=== PATIENT | female | born 1950 | race African-American/Black ===

== ENCOUNTER → 2018-09-22 | Day surgery (SDC) | payer MEDICARE ==
[2018-09-17 15:48] LABS: BASOPHILS # (AUTO) 0.1 (0.0-0.1); BASOPHILS % 0.9 % (0.0-1.0); EOSINOPHILS # (AUTO) 0.3 (0.0-0.4); EOSINOPHILS % 2.7 % (0.0-6.0); HEMATOCRIT 23.8 % (34.2-44.1); HEMOGLOBIN 8.2 g/dL (12.0-16.0); LYMPHOCYTES # (AUTO) 1.6 (1.0-3.2); LYMPHOCYTES % 15.5 % (18.0-39.1); MEAN CORPUSCULAR HEMOGLOBIN 29.1 pg (28-32); MEAN CORPUSCULAR HGB CONC 34.5 g/dL (31-35); MEAN CORPUSCULAR VOLUME 84.4 fL (81-99); MONOCYTES # (AUTO) 0.8 (0.2-0.8); MONOCYTES % 7.6 % (4.4-11.3); NEUTROPHILS # (AUTO) 7.4 (2.1-6.9); NEUTROPHILS % 72.8 % (38.7-80.0); PLATELET COUNT 260 x10e3/uL (140-360); RED BLOOD COUNT 2.82 x10e6/uL (3.6-5.1); RED CELL DISTRIBUTION WIDTH 21.3 % (11.7-14.4)
[~2018-09-22] MED LIST: ADVIL200 MG PO; ALIGN4 MG PO; ALLOPURINOL100 MG PO; AMLODIPINE BESYL5 MG PO; ATORVASTATIN CA40 MG PO; BAYER ASPIRIN PO; BUMETANIDE1 MG PO; CARVEDILOL3.125 MG PO; FERROUS SULFAT325 MG PO; FISH OIL 1,0001 EAC2 PO; FUROSEMIDE INJ 10 MG/ML 4 ML VIAL ONE; FUROSEMIDE40 MG PO; LIDOCAINE HCL 2% LOCAL INJ 5 ML SDV VIAL INJ ONE; LOSARTAN POTAS100 MG PO; MIDAZOLAM HCL 2 MG/2 ML VIAL ONE; OMEPRAZOLE40 MG PO; ONDANSETRON HCL INJ 2MG/ML 2ML 2 MG/ML VIAL ONE; PROMETHAZINE HCL (IM) 25 MG/ML VIAL ONE; PROPOFOL IV EMULSION 10 MG/ML 20 ML VIAL ONE; SODIUM CHLORIDE 0.9% 500ML 500 ML ONE; SPIRONOLACTONE50 MG PO; TYLENOL PO; VITAMIN B12-FO1 EACH PO
--- OUTSIDE RECORDS SUMMARY | 2018-09-22 09:35 | XMS REPORT ---
Author [facility] Address Unknown Phone Unavailable Care Team Providers Care Data Capture Specialist Name Role Phone Unavailable Unavailable Problems This patient has no known problems. Allergies, Adverse Reactions, Alerts This patient has no known allergies or adverse reactions. Medications This patient has no known medications. Encounters Start Date/Time End Date/Time Encounter Type Admission Type Attending [facility] Care Department Encounter ID 2018-06-17 00:00:00 2018-06-17 00:00:00 Outpatient [facility] [id number] 2018-04-01 00:00:00 2018-04-01 00:00:00 Outpatient [facility] [id number] 2018-02-10 08:55:25 2018-02-10 08:55:25 Outpatient [facility] [id number] 2018-02-10 08:04:07 2018-02-10 08:04:07 Outpatient [facility] [id number] 2018-02-06 00:00:00 2018-02-06 00:00:00 Outpatient [facility] [id number] 2018-02-04 12:02:54 2018-02-04 12:02:54 Outpatient [facility] [id number] 2018-01-22 13:51:13 2018-01-22 13:51:13 Outpatient [facility] [id number] 2018-01-21 00:00:00 2018-01-21 00:00:00 Outpatient [facility] [id number] 2017-12-05 06:29:02 2017-12-05 06:29:02 Outpatient [facility] [id number] 2017-11-19 00:00:00 2017-11-19 00:00:00 Outpatient [facility] [id number] 2017-11-10 11:21:08 2017-11-10 11:21:08 Outpatient [facility] [id number] 2017-11-10 09:53:33 2017-11-10 09:53:33 Outpatient [facility] [id number] 2017-10-31 10:05:57 2017-10-31 10:05:57 Outpatient [facility] [id number] 2017-10-13 00:00:00 2017-10-13 00:00:00 Outpatient [facility] [id number] 2017-10-09 10:09:49 2017-10-09 10:09:49 Outpatient [facility] [id number] 2017-10-06 00:00:00 2017-10-06 00:00:00 Outpatient [facility] [id number] 2017-08-28 10:47:16 2017-08-28 10:47:16 Outpatient [facility] [id number] 2017-08-28 00:00:00 2017-08-28 00:00:00 Outpatient [facility] [id number] 2017-08-27 11:41:08 2017-08-27 11:41:08 Outpatient [facility] [id number] 2017-08-14 09:34:56 2017-08-14 09:34:56 Outpatient [facility] [id number] 2017-07-28 07:24:07 2017-07-28 07:24:07 Outpatient [facility] [id number] 2017-07-01 10:27:27 2017-07-01 10:27:27 Outpatient [facility] [id number] 2017-06-26 00:00:00 2017-06-26 00:00:00 Outpatient [facility] [id number] 2017-06-26 00:00:00 2017-06-26 00:00:00 Outpatient [facility] [id number] 2017-06-25 00:00:00 2017-06-25 00:00:00 Outpatient [facility] [id number] 2017-05-29 00:00:00 2017-05-29 00:00:00 Outpatient [facility] [id number] 2017-04-10 00:00:00 2017-04-10 00:00:00 Outpatient [facility] [id number] 2017-04-09 00:00:00 2017-04-09 00:00:00 Outpatient [facility] [id number] 2017-04-02 00:00:00 2017-04-02 00:00:00 Outpatient [facility] [id number] 2017-03-25 15:06:42 2017-03-25 15:06:42 Outpatient [facility] [id number] 2017-03-13 13:12:25 2017-03-13 13:12:25 Outpatient [facility] [id number] 2017-03-10 00:00:00 2017-03-10 00:00:00 Outpatient [facility] [id number] 2017-03-05 12:18:43 2017-03-05 12:18:43 Outpatient [facility] [id number] 2017-03-05 11:03:12 2017-03-05 11:03:12 Outpatient [facility] [id number] 2016-12-25 00:00:00 2016-12-25 00:00:00 Outpatient [facility] [id number] 2016-09-27 07:17:30 2016-09-27 07:17:30 Outpatient [facility] [id number] 2016-09-17 11:05:23 2016-09-17 11:05:23 Outpatient [facility] [id number] 2016-09-17 10:48:57 2016-09-17 10:48:57 Outpatient [facility] [id number] 2016-09-17 09:36:09 2016-09-17 09:36:09 Outpatient [facility] [id number] 2016-09-17 00:00:00 2016-09-17 00:00:00 Outpatient [facility] [id number] 2015-09-26 14:25:13 2015-09-26 14:25:13 Outpatient [facility] [id number]
--- OUTSIDE RECORDS SUMMARY | 2018-09-22 09:35 | XMS REPORT | Clinical Summary ---
Author Author [facility] Organization [facility] Address Unknown Phone Unavailable Care Team Providers Care Resident Services Supervisor Name Role Phone Sadiq Bergeron MD PCP Allergies Comments Active Allergy Reactions Severity Noted Date Dale Inhibitors Cough 12/14/2012 Iodine (Bulk) Nausea and 12/14/2012 Vomiting Medications End Date Status Medication Sig Dispensed Refills Start Date Active OMEGA-3S/DHA/EPA/FISH OIL Take 2-3 0 (OMEGA 3 OR) capsules by mouth daily. Active ascorbic acid (VITAMIN C) Take 500 mg 0 500 mg tablet by mouth daily. Active allopurinol (ZYLOPRIM) Take 1 tablet 90 tablet 1 100 mg tabletIndications: by mouth 7 Gout, unspecified daily. Active omeprazole (PRILOSEC) 20 Take 1 90 capsule 0 mg delayed release capsule by 7 capsule mouth daily 30min before breakfast. Active ketoconazole (NIZORAL) 2 Apply to 30 g 0 % topical affected area 8 creamIndications: daily. Intertriginous candidiasis Active amLODIPine (NORVASC) 5 mg Take 1 tablet 90 tablet 3 tabletIndications: by mouth 8 Chronic systolic daily. congestive heart failure Active aspirin (ASPIRIN) 81 mg Chew and 90 tablet 3 chewable swallow 1 8 tabletIndications: tablet by Chronic systolic mouth daily. congestive heart failure Active spironolactone Take 1 tablet 90 tablet 1 (ALDACTONE) 50 mg by mouth 8 tabletIndications: daily. Chronic systolic congestive heart failure Active atorvastatin (LIPITOR) 40 Take 1 tablet 90 tablet 1 mg tabletIndications: by mouth at 8 Chronic systolic bedtime congestive heart failure nightly. Active carvedilol (COREG) 6.25 Take 1 tablet 60 tablet 0 mg tabletIndications: by mouth 2 8 Hypertension, essential, times daily Chronic systolic CHF (with meals). (congestive heart failure) Active losartan (COZAAR) 100 mg Take 1 tablet 90 tablet 3 tabletIndications: by mouth 9 Hypertension, essential, daily. Chronic systolic Patient needs congestive heart failure to reschedule missed Cardiology, stress test, Hematology appointments for future refills. Active bumetanide (BUMEX) 1 mg Take 1 tablet 90 tablet 3 tabletIndications: by mouth 9 Chronic systolic daily Take 1 congestive heart failure tablet twice a day for 4-5 days. Then take daily or every other day depending in swelling of the legs or difficulty laying down flat.. 02/04/2018 Discontinued ASPIRIN 81 MG 1 TABLET 30 0 TABIndications: Chest DAILY 7 pain, unspecified 10/18/2017 Discontinued losartan (COZAAR) 100 mg Take 1 tablet 90 tablet 0 tabletIndications: by mouth 8 Hypertension, essential, daily Pt Chronic systolic needs to congestive heart failure reschedule missed Cardiology, stress test, Hematology appts for future refills.. 02/04/2018 Discontinued carvedilol (COREG) 6.25 Take 1 tablet 60 tablet 0 mg tabletIndications: by mouth 2 8 Hypertension, essential, times daily Chronic systolic CHF (with meals). (congestive heart failure) 01/14/2018 Discontinued furosemide (LASIX) 40 mg Take half of 60 tablet 1 tabletIndications: a tablet 8 Chronic systolic (20Mg) by congestive heart failure mouth 2 times daily. 02/04/2018 Discontinued amLODIPine (NORVASC) 5 mg Take 1 tablet 90 tablet 3 tabletIndications: by mouth 8 Chronic systolic daily. congestive heart failure 02/04/2018 Discontinued atorvastatin (LIPITOR) 40 Take 1 tablet 90 tablet 1 mg tabletIndications: by mouth at 8 Chronic systolic bedtime congestive heart failure nightly. 02/04/2018 Discontinued spironolactone Take 1 tablet 90 tablet 1 (ALDACTONE) 50 mg by mouth 8 tabletIndications: daily. Chronic systolic congestive heart failure 02/04/2018 Discontinued losartan (COZAAR) 100 mg Take 1 tablet 90 tablet 0 tabletIndications: by mouth 8 Hypertension, essential, daily Pt Chronic systolic needs to congestive heart failure reschedule missed Cardiology, stress test, Hematology appts for future refills.. 12/19/2017 predniSONE (DELTASONE) 20 Take 3 3 tablet 0 mg tabletIndications: tablets by 8 Chronic systolic CHF mouth once (congestive heart for 1 dose. failure) 02/04/2018 Discontinued furosemide (LASIX) 40 mg Take half of 90 tablet 0 tabletIndications: a tablet 8 Chronic systolic (20Mg) by congestive heart failure mouth 2 times daily. 06/01/2018 Discontinued bumetanide (BUMEX) 1 mg Take 1 tablet 90 tablet 3 tabletIndications: by mouth 8 Chronic systolic daily Take 1 congestive heart failure tablet twice a day for 4-5 days. Then take daily or every other day depending in swelling of the legs or difficulty laying down flat.. 06/01/2018 Discontinued losartan (COZAAR) 100 mg Take 1 tablet 90 tablet 3 tabletIndications: by mouth 8 Hypertension, essential, daily. Chronic systolic Patient needs congestive heart failure to reschedule missed Cardiology, stress test, Hematology appointments for future refills. 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 Fraga is a 63 yo F with the following history: 1. 08/02 Patient has had low hemoglobin, previously managed with iron supplement 2. 01/21/13 Referred to hematology clinic for anemia work up and appeared consistent with IGLESIA negative hemolytic anemia 3. 04/29/13-08/12/13 Started on steroid taper GERD (gastroesophageal reflux disease) 03/24/2012 Gout, unspecified 09/03/2006 Papanicolaou smear of cervix with low grade squamous intraepithelial lesion (LGSIL) Encounters Care Team Description Date Type Specialty Chelsey Herrera RN Hypertension, essential; Chronic systolic congestive heart failure 06/01/2018 Refill Family Practice Sadiq Bergeron MD 02/10/2018 Ancillary Radiology Procedure Jenny Rodriguez MD Nguyen, Phuc, MD Chronic systolic congestive heart failure; Hypertension, essential; Chronic systolic CHF (congestive heart failure) 02/04/2018 Office Visit Cardiology Anna Smith MD Balla, Justin D, MD Chronic systolic (congestive) heart failure (Primary Dx); Breast cancer screening 01/22/2018 Office Visit Family Practice Sadiq Bergeron MD Chronic systolic congestive heart failure 01/14/2018 Refill Family Practice Jenny Rodriguez MD Kayani, Waleed T, MD Chronic systolic CHF (congestive heart failure) (Primary Dx) 12/05/2017 Hospital Encounter Jenny Rodriguez MD Lakkis, Nasser, MD 11/10/2017 Hospital Lab Encounter Pippa Kerr RN Chronic systolic CHF (congestive heart failure) (Primary Dx); Hypertension, essential 11/10/2017 Nurse Only Cardiology Aj Tillman MD 10/31/2017 Hospital Encounter Yeison Liao DO Hypertension, essential; Chronic systolic congestive heart failure 10/18/2017 Refill Family Practice Jenny Rodriguez MD 10/09/2017 Hospital Encounter after 09/21/2017 Immunizations Name Administration Dates Next Due Asa (aspirin) 81mg Tab 03/23/2012 Influenza Vaccine 02/17/2014, 03/24/2012 Influenza Vaccine, 07/01/2017 (Deferred: Patient Refused) Seasonal, Injectable Influenza, Vaccine 02/04/2018 <FLUCELVAX>(Preservative- Free) Nitrostat 0.4mg Tab 03/23/2012 PCV 13 (Pnuemococcal 07/01/2017 Conjugated 13 Valent) PPV 23 Pneumococcal 04/16/2012 Polysaccaride Pneumococcal 13-valent 08/23/2016 (Deferred: Patient Refused - not conj 0.5 mL injection feeling well) Family History Medical History Relation Name Comments Cancer Mother colon CA - Relation Name Status Comments Father Maternal Grandfather Maternal Grandmother Mother Paternal Grandfather Paternal Grandmother Social History Date Tobacco Use Types Packs/Day Years Used Never Smoker Smokeless Tobacco: Never Used Tobacco Cessation: Counseling Given: No Drinks/Week oz/Week Comments Alcohol Use about once a month--about 4 beers each occasion Yes Sex Assigned at Date Recorded Not on file Industry Job Start Date Occupation Not on file Not on file Not on file Travel End Travel History Travel Start No recent travel history available. Last Filed Vital Signs Reading Time Taken Comments Vital Sign 122/53 02/04/2018 12:03 PM CDT Blood Pressure 68 02/04/2018 12:03 PM CDT Pulse 36.6 C (97.9 F) 02/04/2018 12:03 PM CDT Temperature 17 02/04/2018 12:03 PM CDT Respiratory Rate 99% 02/04/2018 12:03 PM CDT Oxygen Saturation - - Inhaled Oxygen Concentration 80.7 kg (178 lb) 02/04/2018 12:03 PM CDT Weight 170.2 cm (5' 7") 02/04/2018 12:03 PM CDT Height 27.88 02/04/2018 12:03 PM CDT Body Mass Index Plan of Treatment Health Maintenance Due Date Last Done Comments Colorectal Cancer Scrn 08/28/2018 08/28/2017, 11/05/2012 Annual (FIT/FOBT) Age 50 to 75 Breast Cancer Scrn 02/10/2019 02/10/2018, 03/13/2017, 09/01/2015, (Yearly) Additional history exists IMM Pneumococcal Age 65 Completed 04/16/2012 (Previously completed - and Up External) Procedures Comments Procedure Name Priority Date/Time Associated Diagnosis MAMMOGRAM BILAT SCREEN Routine 02/10/2018 Breast cancer screening DIGITAL 8:53 AM CDT COMPREHENSIVE METABOLIC Routine 02/10/2018 Chronic systolic PANEL(DBIL NOT INCLUDED) 7:52 AM CDT (congestive) heart failure LIPID PROFILE Routine 02/10/2018 Chronic systolic 7:52 AM CDT (congestive) heart failure CORONARY ANGIOGRAPHY 12/05/2017 8:20 AM CDT PT/INR Routine 11/10/2017 11:48 AM CDT CBC/DIFF Routine 11/10/2017 11:48 AM CDT BASIC METABOLIC PANEL Routine 11/10/2017 11:48 AM CDT 12 LEAD EKG Routine 11/10/2017 Chronic systolic CHF 10:39 AM CDT (congestive heart failure) Hypertension, essential TTE FOLLOW UP 10/31/2017 11:08 AM CDT TRANSTHORACIC ECHO (TTE) Routine 10/09/2017 Abnormal stress test 9:38 AM CDT after 09/21/2017 Results * MAMMOGRAM BILAT SCREEN DIGITAL (02/10/2018 8:53 AM CDT) Specimen Impressions Performed At IMPRESSION: BENIGN SMS There is no mammographic evidence of malignancy. A 1 year screening mammogram is recommended. This document has been electronically signed. Jae pearson/jennifer:02/10/2018 09:02:05 Contact Centre Supervisor: Evon FELIX)(Akhil), [facility] letter sent: Mammography Normal Mammogram BI-RADS: 2 Benign G0202 Z85.3 Narrative Performed At #[id number] - MAMMOGRAM BILAT SCREEN DIGITAL SMS BILATERAL DIGITAL SCREENING MAMMOGRAM WITH CAD: 02/10/2018 CLINICAL: Screening for malignancy. Comparison is made to exams dated:03/13/2017, 09/01/2015, 04/26/2014 [facility], 11/13/2012, 11/27/2011 [facility], and 10/22/2011 [facility]. The tissue of both breasts is predominately fatty. Current study was also evaluated with a Computer Aided Detection (CAD) system. There are benign vascular calcifications, calcifications, and a density in both breasts. No significant masses, calcifications, or other findings are seen in either breast. There has been no significant interval change. Procedure Note Interface, Rad/Mammog In - 02/10/2018 9:29 AM CDT #[id number] - MAMMOGRAM BILAT SCREEN DIGITAL BILATERAL DIGITAL SCREENING MAMMOGRAM WITH CAD: 02/10/2018 CLINICAL: Screening for malignancy. Comparison is made to exams dated: 03/13/2017, 09/01/2015, 04/26/2014 [facility], 11/13/2012, 11/27/2011 [facility], and 10/22/2011 [facility]. The tissue of both breasts is predominately fatty. Current study was also evaluated with a Computer Aided Detection (CAD) system. There are benign vascular calcifications, calcifications, and a density in both breasts. No significant masses, calcifications, or other findings are seen in either breast. There has been no significant interval change. IMPRESSION IMPRESSION: BENIGN There is no mammographic evidence of malignancy. A 1 year screening mammogram is recommended. This document has been electronically signed. Jae pearson/jennifer:02/10/2018 09:02:05 Contact Centre Supervisor: Evon RUSHING(Tsering)(Akhil), [facility] letter sent: Mammography Normal Mammogram BI-RADS: 2 Benign G0202 Z85.3 Performing Organization Address [facility] Phone Number SMS * COMPREHENSIVE METABOLIC PANEL(DBIL NOT INCLUDED) (02/10/2018 7:52 AM CDT) Albumin 4.5 3.7 - 5.3 g/dL BT MAIN-ST[facility] 1 Calcium 9.8 8.6 - 10.3 mg/dL BT MAIN[facility] 1 CO2 25 21 - 31 mmol/L BT MAIN-[facility]ATION 1 Chloride 104 98 - 107 mmol/L BT MAIN[facility]ATION 1 Creatinine 1.10 0.6 - 1.2 mg/dL BT MAIN[facility] 1 Glucose 97 70 - 110 mg/dL BT [facility] 1 Alk Phos 90 34 - 104 U/L BT MAIN[facility] 1 Potassium 4.2 3.5 - 5.1 mmol/L BT MAIN-[facility] 1 Sodium 138 136 - 145 mmol/L BT MAIN[facility] 1 ALT 10 7 - 52 U/L BT MAIN[facility] 1 AST 16 13 - 39 U/L BT MAIN[facility] 1 Urea Nitrogen 23 7 - 25 mg/dL BT [facility] 1 T Bilirubin 2.7 (H) 0.2 - 1.2 mg/dL BT MAIN[facility] 1 T Protein 7.5 6.0 - 8.3 g/dL BT MAIN[facility] 1 GFR, Estimated 50 mL/min/1.73 m2 BT MAIN[facility] 1 GFR, Estim, 60 mL/min/1.73 m2 BT [facility] Afr-Am 1 Anion Gap 9 BT MAIN[facility]ATION 1 Specimen Blood Performing Organization Address [facility] Phone Number MISYS BT [facility]IN-[facility] 1 * LIPID PROFILE (02/10/2018 7:52 AM CDT) Cholesterol 106 mg/dL BT [facility] Comment: 1 REFERENCE RANGE: Desirable: <200 mg/dL Borderline: 200-240 mg/dL High Risk: >240 mg/dL Triglyceride 55 <150 mg/dL BT [facility] Comment: 1 REFERENCE RANGE: Normal: <150 mg/dL Borderline High: 150-199 mg/dL High: 200-499 mg/dL Very High: >ag=693 mg/dL HDL 42 mg/dL BT [facility] Comment: 1 Increased CHD risk: <40 mg/dL Decreased CHD risk: >60 mg/dL LDL 53 mg/dL BT [facility] Comment: 1 REFERENCE RANGE: Optimal: <100 mg/dL Near Optimal: 100-129 mg/dL Borderline High: 130-159 mg/dL High: 160-189 mg/dL Very High: >lp=233 mg/dL Specimen Blood Performing Organization Address City/State/Zipcode Phone Number MISYS MAIN-STATION 1 * CORONARY ANGIOGRAPHY (12/05/2017 8:20 AM CDT) CORONARY Invasive Cardiology Report SMS ANGIOGRAPHY JENNIFER FRAGA Age:67Gender: F :1950 Exam Date: 12/05/2017 08:20 Exam Location:[facility] Ordering Phys: OSCAR MACDONALD Referring Phys:JENNY RODRIGUEZ Phys:Oscar Macdonald Fellow Phys: Fellow Phys: Reason For Exam: Indications: Chest pain Interventional Fellow Phys: Kayleigh De Souza MD Interventional Fellow Phys: ICD-9 Codes: Exam Type:Invasive Cardiology Procedure CPT: 94840 Additional CPT:49816 Height: 67BSA: 2.0 Weight: 178 BP: 141/ 59 HR: 82Rhythm:S inus rhythm Technical Quality: excellent PROCEDURE NOTES History: 67 yo female with pmh of htn and hld who presented with chest pain and abnoraml stress test. Negative cath in 2011. Referred for coronary angiography. Procedures Performed: Selective Interpretation & Supervision - Coronaries Radial arterial access Terumo band closure Access Site:Right radial artery. Complications: No complications. Estimated Blood Loss:10ml Speciman Removed:No Blood Transfusion: No Device Implanted:No Anesthesia/Sedation: Yes Post ASA Classification: 2 Total Radiation Dose:1.32e+ (mGy) 003 Procedure Staff: Dr. Oscar Macdonald Procedure Notes: After explaining the risks and benefits of the procedure informed consent was obtained. (See nursing notes for medications administered.) The right radial was prepped in a sterile fashion and draped. 1% lidocaine was used to infiltrate the right arm by radial artery. A 6 F terumo slender sheath was placed in the right radial artery using the modified Seldinger technique. Coronary angiography was performed using a 6 F JL4 and Chuck preformed catheter. The catheter was removed over a guide wire. Successful hemostasis at the access site was achieved using a TR band. The case ended without any complications. estimated blood loss 10ml. Interventional Information: Hemodynamic Data (pressures in mmHg, all other quantities in CGS units) Hemodynamics Findings Intervention Information Intervention Summary Left Ventriculography Mitral Stenosis: Mitral Insufficiency: EF: % EF Method: Left Ventriculography Findings Aortography Aortic Stenosis: Aortic Insufficiency: Aortography Findings: Coronary Diagram Dominance: Right Vessel Angiography Findings Left main: No angiographic disease LAD: Gives off one very large diagonal branch. Luminal irregularities. No angiographic disease LCx: Gives off Large OM1, small OM2, and medium sized OM3 before terminating in the AV groove. Luminal irregularities. RCA: Dominant vessel with large conus branch, luminal irregularities. Other Angiographic Findings CONCLUSIONS 1. Luminal irregularities, no change from previous catheterization in 2011. Recommendations 1. Risk factor modification and htn management. 2. Return back to [facility] cardiology for further evaluation and management. Event Log Case Times: Inventory: Procedure Log: Medications: Vital Signs: IMAGE ANCHOR CONTROL - DO NOT REMOVE!!!! Oscar Macdonald (Electronically Signed) Final Date:05 December 2017 17:15 Specimen Performing Organization Address City/[facility] Phone Number SMS * PT/INR (11/10/2017 11:48 AM CDT) PT 16.9 (H) 11.8 - 15.0 Seconds BT MAIN-STATION 3 INR 1.4 BT MAIN-STATION SUGGESTED THERAPEUTIC RANGES: 3 INR 2.0-3.0 for MODERATE INTENSITY ANTICOAGULATION INR 2.5-3.5 for HIGH INTENSITY ANTICOAGULATION Specimen Performing Organization Address [facility] Phone Number MISYS BT MAIN-STATION 3 * CBC/DIFF (11/10/2017 11:48 AM CDT) WBC 9.1 4.5 - 11.0 K/uL BT MAIN-STATION 2 RBC 3.02 (L) 4.20 - 5.40 M/uL BT MAIN-STATION 2 Hemoglobin 8.9 (L) 12.0 - 16.0 g/dL BT MAIN-STATION 2 Hematocrit 25.7 (L) 37.0 - 47.0 % BT MAIN-STATION 2 MCV 85 82 - 92 fL BT MAIN[facility]STATION 2 MCH 29.5 27.0 - 32.0 pg BT MAIN-STATION 2 MCHC 34.6 32.0 - 36.0 g/dL BT MAIN[facility]ATION 2 RDW 63.9 (H) 36.4 - 46.3 fL BT MAIN-STATION 2 Platelet 283 150 - 400 K/uL BT MAIN-STATION 2 Mean Platelet 9.6 9.4 - 12.4 fL BT MAIN[facility]ATION Volume 2 Percent NRBC 0.0 BT MAIN-STATION 2 Absolute NRBC 0.00 BT MAIN-STATION 2 Neutrophil 74.8 (H) 34.0 - 70.0 % BT MAIN-STATION 2 Lymphocyte 15.3 (L) 20.0 - 50.0 % BT MAIN-STATION 2 Monocyte 5.8 5.0 - 12.0 % BT MAIN-STATION 2 Eosinophil 2.5 0.7 - 5.0 % BT MAIN-STATION 2 Basophil 1.0 0.1 - 1.2 % BT MAIN-STATION 2 Pct Immat Gran 0.6 (H) 0.0 - 0.5 BT MAIN-STATION 2 Neutrophil, Abs 6.80 (H) 1.56 - 6.13 K/uL BT MAIN-STATION 2 Lymphocyte, Abs 1.39 1.18 - 3.74 K/uL BT MAIN-STATION 2 Monocyte, Abs 0.53 (H) 0.24 - 0.36 K/uL BT MAIN-STATION 2 Eosinophil, Abs 0.23 0.04 - 0.36 K/uL BT MAIN-STATION 2 Basophil, Abs 0.09 (H) 0.01 - 0.08 K/uL BT MAIN-STATION 2 Absol Immat 0.05 (H) 0.00 - 0.03 K/uL BT MAIN[facility]STATION Gran 2 Specimen Performing Organization Address City/State/Zipcode Phone Number MISYS BT [facility]IN[facility] 2 * BASIC METABOLIC PANEL (11/10/2017 11:48 AM CDT) CO2 24 21 - 31 mmol/L BT MAIN-STATION 1 Chloride 108 (H) 98 - 107 mmol/L BT MAIN-STATION 1 Potassium 4.3 3.5 - 5.1 mmol/L BT MAIN-STATION 1 Sodium 140 136 - 145 mmol/L BT MAIN-STATION 1 Glucose 86 70 - 110 mg/dL BT MAIN-STATION 1 Urea Nitrogen 19 7 - 25 mg/dL BT MAIN[facility]ATION 1 Creatinine 1.00 0.6 - 1.2 mg/dL BT MAIN-STATION 1 Anion Gap 8 BT MAIN-[facility]ATION 1 Calcium 9.4 8.6 - 10.3 mg/dL BT MAIN-STATION 1 GFR, Estimated 55 mL/min/1.73 m2 BT MAIN-STATION 1 GFR, Estim, >60 mL/min/1.73 m2 BT MA[facility] Afr-Am 1 Specimen Performing Organization Address [facility] Phone [facility] MISYS BT [facility]IN[facility] 1 * 12 LEAD EKG (11/10/2017 10:39 AM CDT) Pathologist [facility] 12 LEAD EKG FOR [facility] Test Date:2017-11-10 Pat Name: JENNIFER FRAGA Department: Room: Gender: F Computer Builder: [id number] :[birth year] Requested By: Order Number: Tsering still MD: Oscar Macdonald Measurements Intervals Ryder Rate: 54 P:-52 NJ: 197 QRS: -67 QRSD: 157 T: 132 QT: 544 QTc:520 Interpretive Statements SINUS BRADYCARDIA WITH OCCASIONAL VENTRICULAR PREMATURE COMPLEXES LEFT AXIS DEVIATION Intraventricular Conduction Delay Electronically Signed On 11-10-17 15:52:11 CDT by Oscar Macdonald Specimen Performing Organization Address City[facility] Phone Number [facility] * TTE FOLLOW UP (10/31/2017 11:08 AM CDT) Pathologist [facility] ECHO HEART Transthoracic [facility] XTHORACIC,LIMIT Echo Report ED JENNIFER FRAGA Age:67 Gender: F :1950 Exam Date: 10/31/2017 11:08 Exam Location: [facility] Echo Ordering Phys: AJ TILLMAN Referring Phys:JENNY RODRIGUEZ Reading Phys:Kareem Sosa Fellow Phys: Fellow Phys: Crew Clerk: Marisol Machado Reason For Exam: Indications: abnormal echo - LV thrombus?, CHF ICD-9 Codes: I50.9 Exam Type: TTE FOLLOW UP Procedure CPT:90360 Addtional CPT: Ht (in): 67 BSA: 1.95HR: 57 Rhythm: Sinus rhythm Wt (lb): 175BP: 130/ 73 Technical Quality: Technically difficult study History: MEASUREMENTS(Male / Female) Normal Values FINDINGS Left Ventricle Right Ventricle Right Atrium Left Atrium IAS Mitral Valve Aortic Valve Tricuspid Valve Pulmonic Valve Pericardium Aorta IVC CONCLUSIONS Limited study to evaluate for possible LV thrombus. IV contrast was used. Severely dilated LV with severely reduced systolic function. Dilated RV with reduced systolic function. No LV thrombus in contrast apical views. Kareem Sosa MD (Electronically Signed) Final Date:31 October 2017 16:54 Specimen Performing Organization Address City/State/Zipcode Phone Number SMS * TRANSTHORACIC ECHO (TTE) (10/09/2017 9:38 AM CDT) TRANSTHORACIC Transthoracic SMS ECHO (TTE) Echo Report JENNIFER FRAGA Age:66 Gender: F :1950 Exam Date: 10/09/2017 09:38 Exam Location: [facility] Echo Ordering Phys: JENNY RODRIGUEZ ([facility] Referring Phys:JENNY RODRIGUZE ([facility]) Reading Phys:Pete Bravo MD Fellow Phys: Fellow Phys: Crew Clerk: Leonor Dobbs Reason For Exam: Indications: abnormal stress test ICD-9 Codes: Exam Type: Transthoracic Echo Procedure CPT:02653 Addtional CPT: Ht (in): 65 BSA: 1.95HR: 58 Rhythm: Sinus bradycardia Wt (lb): 178BP: 135/ 62 Technical Quality: Adequate History: MEASUREMENTS(Male / Female) Normal Values 2D ECHO LV Diastolic Diameter PLAX5.9 cm 4.2 - 5.9 / 3.9 - 5.3 cm LV Systolic Diameter PLAX 4.8 cm 2.1 - 4.0 cm LV Fractional Shortening PLAX 17.7 % 25 - 46% IVS Diastolic Thickness 1.1 cm IVS Systolic Thickness 1.4 cm LVPW Diastolic Thickness1 .2 cm LVPW Systolic Thickness 1.4 cm LV Relative Wall Thickness0.39 LVOT Diameter 2 cm Aortic Root Diameter 3.7 cm LV Diastolic Volume MOD BP141 cm 67 - 155 / 56 - 104 cm LV Systolic Volume MOD BP 84 cm 22 - 58 / 19 - 49 cm LV Ejection Fraction MOD BP 40.4 % >=55% LV Stroke Volume MOD BP 56.8 cm LV Cardiac Output MOD [id number] cm/min LV Cardiac Index MOD BP 1691 cm/minm LA Volume 121 cm 18 - 58 / 22 - 52 cm LA Volume Index 61.9 cm/m 16 - 28 cm/m DOPPLER AV Peak Velocity 213 cm/s AV Peak Gradient 18.1 mmHg AV Mean Velocity 121 cm/s AV Mean Gradient 6.9 mmHg AV Velocity Time Integral 42.5 cm LVOT Peak Velocity 138 cm/s LVOT Peak Gradient 7.6 mmHg LVOT Mean Velocity 93.5 cm/s LVOT Mean Gradient 4.1 mmHg LVOT Velocity Time Integral 30.2 cm LVOT Stroke Volume 94.1 cm AV Area Cont Eq vti 2.2 cm AV Area Cont Eq pk 2 cm Mitral E Point Velocity 155 cm/s Mitral A Point Velocity 63.9 cm/s Mitral E to A Ratio 2.4 MV Deceleration Blaine 876 cm/s MV Deceleration Time 183 ms TR Peak Velocity 372 cm/s TR Peak Gradient 55.4 mmHg PV Peak Velocity 94.2 cm/s PV Peak Gradient 3.6 mmHg PV Mean Velocity 60.4 cm/s PV Mean Gradient 1.6 mmHg PV Velocity Time Integral 25.6 cm PI Peak Velocity 266 cm/s PI Peak Gradient 28.3 mmHg RVOT Peak Velocity 75.6 cm/s RVOT Peak Gradient 2.3 mmHg LV E' Lateral Velocity 7.6 cm/s Mitral E to LV E' Lateral Ratio 20.5 LV E' Septal Velocity 3.1 cm/s Mitral E to LV E' Septal Ratio50.8 FINDINGS Left Ventricle Moderate left ventricular dilatationwith eccentric left ventricular hypertrophy. Mildly reduced global left ventricular systolic function. Left ventricular ejection fraction is 40-44%. There is akinesis of the inferior wall, and apical segments in the 2-chamber view, severe hypokinesis of the basal and mid inferolateral segments, apical segments appear foreshortened in other views. Restrictive filling pattern of the left ventricle (grade 3 diastolic dysfunction). Right Ventricle The right ventricle is dilated, increased wall thickness, reduced systolic function. Right Atrium The right atrium is normal in size. Left Atrium Severe left atrial dilatation. IAS Mitral Valve Structurally normal mitral valve without significant stenosis or prolapse. There is moderate mitral regurgitation, posteriorly directed jet. Aortic Valve The aortic valve is trileaflet, mildly thickened, otherwise structurally normal. There is aortic valve sclerosis without stenosis. There is mild aortic regurgitation. Tricuspid Valve Structurally normal tricuspid valve without significant stenosis. There is trace tricuspid regurgitation. At least moderate pulmonary hypertension. Pulmonary artery systolic pressure estimated to be at least 65 mm Hg assuming an RA pressure of 8 mm Hg. Pulmonic Valve Structurally normal pulmonic valve without significant stenosis. There is moderate pulmonic regurgitation. Pericardium No pericardial effusion. Aorta Normal aortic root for body surface area. IVC The inferior vena cava is normal in size with less than than 50% respiratory change in dimension, consistent with RA pressure 5-10 mmHg. CONCLUSIONS Moderate left ventricular dilatationwith eccentric left ventricular hypertrophy. Mildly reduced global left ventricular systolic function, ejection fraction is 40-44%. There is akinesis of the inferior wall, and apical segments in the 2-chamber view, severe hypokinesis of the basal and mid inferolateral segments, apical segments appear foreshortened in other views, cannot exclude apical LV thrombus. Restrictive filling pattern of the left ventricle (grade 3 diastolic dysfunction). The right ventricle is dilated, increased wall thickness, reduced systolic function. Severe left atrial dilatation. There is moderate mitral regurgitation, posteriorly directed jet. There is mild aortic regurgitation. At least moderate pulmonary hypertension, pulmonary artery systolic pressure estimated to be at least 65 mm Hg assuming an RA pressure of 8 mm Hg. Compared to the prior study dated 08/23/2015, LVEF is reduced (although visual inspection of prior images already reveals mildly reduced EF at the time), inferior wall motion abnormalities are not new, apical wall motion abnormalities appear to be new. The patient will return for additional images with ultrasound contrast to rule out apical LV thrombus. Pete Bravo MD (Electronically Signed) Final Date:09 October 2017 13:33 2D ECHO LV Diastolic Diameter PLAX5.9 cm 4.2 - 5.9 / 3.9 - 5.3 cm LV Systolic Diameter PLAX 4.8 cm 2.1 - 4.0 cm LV Fractional Shortening PLAX 17.7 % 25 - 46% IVS Diastolic Thickness 1.1 cm IVS Systolic Thickness 1.4 cm LVPW Diastolic Thickness1 .2 cm LVPW Systolic Thickness 1.4 cm LV Relative Wall Thickness0.39 LVOT Diameter 2 cm Aortic Root Diameter 3.7 cm LV Diastolic Volume MOD BP141 cm 67 - 155 / 56 - 104 cm LV Systolic Volume MOD BP 84 cm 22 - 58 / 19 - 49 cm LV Ejection Fraction MOD BP 40.4 % >=55% LV Stroke Volume MOD BP 56.8 cm LV Cardiac Output MOD [id number] cm/min LV Cardiac Index MOD BP 1691 cm/minm LA Volume 121 cm 18 - 58 / 22 - 52 cm LA Volume Index 61.9 cm/m 16 - 28 cm/m DOPPLER AV Peak Velocity 213 cm/s AV Peak Gradient 18.1 mmHg AV Mean Velocity 121 cm/s AV Mean Gradient 6.9 mmHg AV Velocity Time Integral 42.5 cm LVOT Peak Velocity 138 cm/s LVOT Peak Gradient 7.6 mmHg LVOT Mean Velocity 93.5 cm/s LVOT Mean Gradient 4.1 mmHg LVOT Velocity Time Integral 30.2 cm LVOT Stroke Volume 94.1 cm AV Area Cont Eq vti 2.2 cm AV Area Cont Eq pk 2 cm Mitral E Point Velocity 155 cm/s Mitral A Point Velocity 63.9 cm/s Mitral E to A Ratio 2.4 MV Deceleration [place] 876 cm/s MV Deceleration Time 183 ms TR Peak Velocity 372 cm/s TR Peak Gradient 55.4 mmHg PV Peak Velocity 94.2 cm/s PV Peak Gradient 3.6 mmHg PV Mean Velocity 60.4 cm/s PV Mean Gradient 1.6 mmHg PV Velocity Time Integral 25.6 cm PI Peak Velocity 266 cm/s PI Peak Gradient 28.3 mmHg RVOT Peak Velocity 75.6 cm/s RVOT Peak Gradient 2.3 mmHg LV E' Lateral Velocity 7.6 cm/s Mitral E to LV E' Lateral Ratio 20.5 LV E' Septal Velocity 3.1 cm/s Mitral E to LV E' Septal Ratio50.8 Specimen Performing Organization Address City/State/Zipcode Phone Number SMS after 09/21/2017 Advance Directives Date Inactivated Comments Code Status Date Activated 12/05/2017 2:31 PM Full Code 12/05/2017 8:45 AM 10/16/2012 9:17 PM Full Code 10/16/2012 3:08 AM 06/23/2012 10:05 PM Full Code 06/20/2012 1:47 PM 03/26/2012 12:51 PM Full Code 03/25/2012 6:02 PM 03/25/2012 6:02 PM Full Code 03/25/2012 6:02 PM
[2018-09-22 20:00] VITALS: BP 134/56
[2018-09-22 20:17] LABS: BASOPHILS # (AUTO) 0.1 (0.0-0.1); BASOPHILS % 0.9 % (0.0-1.0); EOSINOPHILS # (AUTO) 0.3 (0.0-0.4); EOSINOPHILS % 2.1 % (0.0-6.0); HEMOGLOBIN 10.4 g/dL (12.0-16.0); LYMPHOCYTES # (AUTO) 1.9 (1.0-3.2); LYMPHOCYTES % 15.4 % (18.0-39.1); MEAN CORPUSCULAR HEMOGLOBIN 29.1 pg (28-32); MEAN CORPUSCULAR HGB CONC 35.9 g/dL (31-35); MONOCYTES # (AUTO) 0.7 (0.2-0.8); MONOCYTES % 5.8 % (4.4-11.3); NEUTROPHILS # (AUTO) 9.1 (2.1-6.9); NEUTROPHILS % 75.4 % (38.7-80.0); PLATELET COUNT 234 x10e3/uL (140-360); RED BLOOD COUNT 3.58 x10e6/uL (3.6-5.1)
== END | disposition home or self-care (01) ==
LOC: OR 09:08
PROVIDERS: ATTEND Internal Medicine Gastroenterology
DX: Z12.11 Encounter for screening for malignant neoplasm of colon (principal); K57.30 Diverticulosis of large intestine without perforation or abscess without bleeding; K64.1 Second degree hemorrhoids; R19.4 Change in bowel habit; R19.7 Diarrhea, unspecified; D50.9 Iron deficiency anemia, unspecified; I11.0 Hypertensive heart disease with heart failure; I50.9 Heart failure, unspecified; I25.10 Atherosclerotic heart disease of native coronary artery without angina pectoris; E78.5 Hyperlipidemia, unspecified; Z91.041 Radiographic dye allergy status; Z01.810 Encounter for preprocedural cardiovascular examination; Z01.812 Encounter for preprocedural laboratory examination; Z79.82 Long term (current) use of aspirin; Z85.41 Personal history of malignant neoplasm of cervix uteri; Z80.0 Family history of malignant neoplasm of digestive organs
CPT/HCPCS: 36415 ×2; 45380; 85025 ×2; 86850; 86900; 86920; 93005; J1940; J2001; J2250; J2405; J2550; J2704; J7040; P9016

== ENCOUNTER → 2018-09-29 | Day surgery (SDC) | payer MEDICARE ==
[~2018-09-29] MED LIST changes: +FENTANYL CITRATE/PF 100MCG/2 ML INJ ONE; -FUROSEMIDE INJ 10 MG/ML 4 ML VIAL ONE; -ONDANSETRON HCL INJ 2MG/ML 2ML 2 MG/ML VIAL ONE; -PROMETHAZINE HCL (IM) 25 MG/ML VIAL ONE; -PROPOFOL IV EMULSION 10 MG/ML 20 ML VIAL ONE; +PROPOFOL IV EMULSION 10 MG/ML 50 ML VIAL ONE; -SODIUM CHLORIDE 0.9% 500ML 500 ML ONE
[2018-09-29 09:27] VITALS: BP 151/69
== END | disposition home or self-care (01) ==
LOC: OR 06:49
PROVIDERS: ATTEND Internal Medicine Gastroenterology
DX: D50.9 Iron deficiency anemia, unspecified (principal); K31.7 Polyp of stomach and duodenum; K29.50 Unspecified chronic gastritis without bleeding; K44.9 Diaphragmatic hernia without obstruction or gangrene; I11.0 Hypertensive heart disease with heart failure; I50.9 Heart failure, unspecified; I25.10 Atherosclerotic heart disease of native coronary artery without angina pectoris; E78.5 Hyperlipidemia, unspecified; Z91.041 Radiographic dye allergy status; Z79.82 Long term (current) use of aspirin; Z80.0 Family history of malignant neoplasm of digestive organs
CPT/HCPCS: 43239; J2001; J2250; J2704